=== PATIENT | female | born 1960 | race Caucasian/White ===

== ENCOUNTER 2017-06-07 15:44 | Emergency (ER) | payer BC ==
[2017-06-07 16:00] VITALS: BP 118/72
--- NOTE | 2017-06-07 16:12 | UC ---
Skin Complaint HPI - HPI Summary HPI Summary: Pt c/o sudden onset of painful "sores" under tongue and right side of lower gum. Pt denies injury or previous illness. Has HX of cold sores. - History of Current Complaint Hx Obtained From: Patient Hx Last Menstrual Period: June 2013 ?: No Onset/Duration: Sudden Onset, Lasting Days - 1, Still Present Skin Exposure Onset/Duration: Days Ago - 1 Onset Severity: Mild Current Severity: Mild Pain Intensity: 6 Location: Discrete - mouth Character: Painful Aggravating Factor(s): Touch Alleviating Factor(s): Unknown Associated Signs & Symptoms: Positive: Tenderness <Rita Bills NP - Last Filed: 06/07/17 16:22> <Rachel Barclay - Last Filed: 06/07/17 21:51> - History of Current Complaint Chief Complaint: UCDentalProblem Time Seen by Provider: 06/07/17 15:56 Stated Complaint: ORAL COMPLAINT - Allergy/Home Medications Allergies/Adverse Reactions: Allergies Allergy/AdvReac Type Severity Reaction Status Date / Time erythromycin base Allergy Unknown Verified 06/07/17 16:00 Reaction Details Penicillins Allergy Unknown Verified 06/07/17 16:00 Reaction Details Sulfa (Sulfonamide Allergy Unknown Verified 06/07/17 16:00 Antibiotics) Reaction Details ? mycin meds Allergy Unknown Uncoded 06/07/17 16:00 Reaction Details Review of Systems Constitutional: Negative Skin: Negative Eyes: Negative ENT: Other - mouth sores Respiratory: Negative Cardiovascular: Negative Gastrointestinal: Negative Genitourinary: Negative Motor: Negative Neurovascular: Negative Musculoskeletal: Negative Neurological: Negative Psychological: Negative Is Patient Immunocompromised?: No All Other Systems Reviewed And Are Negative: Yes <Rita Bills NP - Last Filed: 06/07/17 16:22> PMH/Surg Hx/FS Hx/Imm Hx Previously Healthy: Yes - Surgical History Surgical History: Yes Surgery Procedure, Year, and Place: c section x 4, tonsils, breast bx benign, vaginal cryosurgey - Family History Known Family History: Positive: Cardiac Disease - Social History Occupation: Employed Full-time Alcohol Use: Occasionally Substance Use Type: None Smoking Status (MU): Former Smoker Have You Smoked in the Last Year: No <Rita Bills NP - Last Filed: 06/07/17 16:22> Physical Exam Triage Information Reviewed: Yes Appearance: Well-Appearing Vital Signs: Initial Vital Signs Temp 99.3 F 06/07/17 15:53 Pulse 69 06/07/17 15:53 Resp 18 06/07/17 15:53 BP 118/72 06/07/17 15:53 Pulse Ox 100 06/07/17 15:53 Vital Signs Reviewed: No Eye Exam: Normal ENT: Positive: Other - oral sores Dental Exam: Normal Neck: Positive: Enlarged Nodes @ - left cervical anterior Respiratory Exam: Normal Respiratory: Positive: No respiratory distress Musculoskeletal Exam: Normal Neurological Exam: Normal Psychological Exam: Normal Skin Exam: Normal <Rita Bills NP - Last Filed: 06/07/17 16:22> Vital Signs: Initial Vital Signs Temp 99.3 F 06/07/17 15:53 Pulse 69 06/07/17 15:53 Resp 18 06/07/17 15:53 BP 118/72 06/07/17 15:53 Pulse Ox 100 06/07/17 15:53 <Rachel Barclay - Last Filed: 06/07/17 21:51> Course/Dx - Differential Diagnoses - Skin Complaint Differential Diagnoses: Systemic Illness - Diagnoses Provider Diagnoses: aphthous <Rita Bills NP - Last Filed: 06/07/17 16:22> Discharge - Sign-Out/Discharge Documenting (check all that apply): Discharge - Billing Disposition and Condition Condition: STABLE Disposition: HOME <Rita Bills NP - Last Filed: 06/07/17 16:22> - Billing Disposition and Condition Condition: STABLE Disposition: HOME <Rachel Barclay - Last Filed: 06/07/17 21:51> - Discharge Plan Condition: Stable Disposition: HOME Prescriptions: Lidocaine 2% VISCOUS* [Xylocaine 2% Viscous*] 15 ml SWISH SPIT Q4H PRN #1 btl PRN Reason: Pain Patient Education Materials: Canker Sores (ED) Referrals: Gerardo Ruiz [Primary Care Provider] - If Needed
== END 2017-06-07 16:18 | disposition home or self-care (01) ==
LOC: UCCORT 15:44
DX: K12.0 Recurrent oral aphthae (principal); Z87.891 Personal history of nicotine dependence; Z88.0 Allergy status to penicillin; Z88.3 Allergy status to other anti-infective agents; Z88.2 Allergy status to sulfonamides
CPT/HCPCS: 99212; G0463